=== PATIENT | male | born 1985 | race Two or more races ===

== ENCOUNTER 2022-07-18 20:54 | Emergency (ER) | payer OTHER ==
[~2022-07-18] VITALS: Ht 170.2 cm; Wt 79.4 kg
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
--- NOTE | 2022-07-18 22:21 | NUR ---
DR. NINO TAM AT PT'S BEDSIDE
--- NOTE | 2022-07-18 22:23 | NUR ---
EMT AT PT'S BEDSIDE TO CLEAN LAC TO POSTERIOR SCALP
[2022-07-18] MEDS ORDERED: TDAP [DIPH/PERTUSSIS/TET] 0.5 ML VIAL IM ONE ×2 (22:24→22:30)
--- NOTE | 2022-07-18 22:27 | NUR ---
PT TAKEN TO CT VIA MELODIE
[2022-07-18] MEDS ORDERED: LIDOCAINE 1%-EPI 1:100,000 20 ML VIAL ONE (22:59)
[2022-07-18 23:15] VITALS: BP 129/67
--- NOTE | 2022-07-18 23:16 | NUR ---
LAC 3.5CM. 4 HEMAL TO POSTERIOR SCALP. NO ACTIVE BLEEDING NOTED.
--- NOTE | 2022-07-18 23:32 | NUR ---
ICT PROJECT MANAGER AT PT'S BEDSIDE
[2022-07-18] MEDS ORDERED: IBUPROFEN 400 MG TABLET ONE (23:59)
[2022-07-19] MEDS ORDERED: IBUPROFEN 400 MG TABLET PO ONE
--- NOTE | 2022-07-19 00:04 | NUR ---
Patient discharged to home in stable condition. Written and verbal after care instructions given. Patient verbalizes understanding of instruction. PT ambulatory with a steady gait
== END 2022-07-19 00:59 | disposition home or self-care (01) ==
LOC: ER 20:57
DX: S01.01XA Laceration without foreign body of scalp, initial encounter (principal); S20.219A Contusion of unspecified front wall of thorax, initial encounter; S09.90XA Unspecified injury of head, initial encounter; Y00.XXXA Assault by blunt object, initial encounter; Y93.89 Activity, other specified; Y92.89 Other specified places as the place of occurrence of the external cause; Y99.8 Other external cause status
CPT/HCPCS: 99284; 70450; 71045; 12002; 90471; 90715; J3490